=== PATIENT | female | born 1995 | race Caucasian/White ===

== ENCOUNTER 2023-11-25 16:31 | Emergency (ER) | payer OTHER ==
[2023-11-25] MEDS: KETOROLAC 15 MG/ML 1 ML VIAL IVP STA (18:24)
--- NOTE | 2023-11-25 18:24 | ED ---
General Adult HPI - General Chief complaint: Abdominal Pain Stated complaint: left side pain Time Seen by Provider: 11/25/23 16:46 Source: patient, RN notes reviewed Mode of arrival: ambulatory Limitations: no limitations - History of Present Illness Initial comments: 27-year-old female presents to the emergency department for evaluation of left flank pain radiating to her groin. She states that the pain has been constant. Pain has been going on for around 4 days. Patient states that she does have a history of kidney stones and is concerned that this is what is going on. She also has a history of polycystic kidney disease. She does report dysuria, frequency. She denies fever, chills. Admits to nausea without vomiting. - Related Data Home Medications Medication Instructions Recorded Confirmed Albuterol Inhaler [Ventolin Hfa 1 puff INHALATION RT-Q6H PRN 05/05/16 05/05/16 Inhaler] Ciprofloxacin HCl [Cipro] 500 mg PO Q12HR 05/05/16 05/05/16 Medroxyprogesterone Acetate 150 mg IM Q90D 05/05/16 05/05/16 [Depo-Provera] Minocycline HCl [Minocin] 100 mg PO Q12HR 05/05/16 05/05/16 Tretinoin 1 applic TOPICAL HS 05/05/16 05/05/16 Previous Rx's Medication Instructions Recorded Ondansetron Odt [Zofran Odt] 4 mg PO Q8HR PRN #10 tab 05/05/16 Sulfamethox-Tmp 800-160Mg [Bactrim 1 each PO Q12HR #20 tab 05/05/16 Ds] Ondansetron Odt [Zofran Odt] 4 mg PO Q8HR PRN #10 tab 11/25/23 Sulfamethox-Tmp 800-160Mg [Bactrim 1 each PO Q12HR #20 tab 11/25/23 Ds] Allergies Allergy/AdvReac Type Severity Reaction Status Date / Time cephalexin [From Keflex] Allergy Vomiting Verified 11/25/23 16:38 Review of Systems ROS Statement: Those systems with pertinent positive or pertinent negative responses have been documented in the HPI. ROS Other: All systems not noted in ROS Statement are negative. Past Medical History Past Medical History: Asthma, Diabetes Mellitus History of Any Multi-Drug Resistant Organisms: None Reported Past Surgical History: Hernia Repair Past Psychological History: ADD/ADHD Smoking Status: Current every day smoker Past Alcohol Use History: None Reported Past Drug Use History: None Reported General Exam Limitations: no limitations General appearance: alert, in no apparent distress Head exam: Present: atraumatic, normocephalic, normal inspection Eye exam: Present: normal appearance, PERRL, EOMI. Absent: scleral icterus, conjunctival injection, periorbital swelling ENT exam: Present: normal exam, mucous membranes moist Neck exam: Present: normal inspection. Absent: tenderness, meningismus, lymphadenopathy Respiratory exam: Present: normal lung sounds bilaterally. Absent: respiratory distress, wheezes, rales, rhonchi, stridor Cardiovascular Exam: Present: regular rate, normal rhythm, normal heart sounds. Absent: systolic murmur, diastolic murmur, rubs, gallop, clicks GI/Abdominal exam: Present: soft, normal bowel sounds. Absent: distended, tenderness, guarding, rebound, rigid Extremities exam: Present: normal inspection, full ROM, normal capillary refill. Absent: tenderness, pedal edema, joint swelling, calf tenderness Back exam: Absent: CVA tenderness (R), CVA tenderness (L) Neurological exam: Present: alert, oriented X3, CN II-XII intact Psychiatric exam: Present: normal affect, normal mood Skin exam: Present: warm, dry, intact, normal color. Absent: rash Course Vital Signs 11/25/23 11/25/23 11/25/23 16:36 20:11 21:23 Temperature 98.6 F 97.6 F Pulse Rate 91 85 87 Respiratory 20 16 20 Rate Blood Pressure 147/91 136/88 140/82 O2 Sat by Pulse 99 97 98 Oximetry Medical Decision Making - Medical Decision Making Was pt. sent in by a medical professional or institution (, PA, [facility], urgent care, hospital, or [facility]...) When possible be specific @ -No Did you speak to anyone other than the patient for history (EMS, parent, family, police, friend...)? What history was obtained from this source @ -No Did you review nursing and triage notes (agree or disagree)? Why? @ -I reviewed and agree with nursing and triage notes Were old charts reviewed (outside hosp., previous admission, EMS record, old EKG, old radiological studies, urgent care reports/EKG's, [facility] records)? Report findings @ -No old charts were reviewed Differential Diagnosis (chest pain, altered mental status, abdominal pain women, abdominal pain men, vaginal bleeding, weakness, fever, dyspnea, syncope, headache, dizziness, GI bleed, back pain, seizure, CVA, palpatations, mental health, musculoskeletal)? @ -Differential Abdominal Pain Women: Appendicitis, Cholecystitis, diverticulosis, ischemic bowel, pancreatitis, hepa titis, UTI, gastroenteritis, AAA, incarcerated hernia, bowel obstruction, constipation, inflammatory bowel, hepatitis, peptic ulcer disease, splenic infarction, perforated viscus, vulvitis, ovarian torsion, PID, kidney stone, placenta abruption, this is not meant to be an all-inclusive list EKG interpreted by me (3pts min.). @ -None X-rays interpreted by me (1pt min.). @ -None done CT interpreted by me (1pt min.). @ -CT abdomen pelvis was obtained which shows no acute process in the abdomen o r pelvis U/S interpreted by me (1pt. min.). @ -None done What testing was considered but not performed or refused? (CT, X-rays, U/S, labs)? Why? @ -None What meds were considered but not given or refused? Why? @ -None Did you discuss the management of the patient with other professionals (skylar suarez i.e., Dr., PA, [facility], lab, RT, psych nurse, foster care social worker, last putter away, teacher, assault amphibious vehicle officer, counter caser)? Give summary @ -No Was smoking cessation discussed for >3mins.? @ -No Was critical care preformed (if so, how long)? @ -No Were there social determinants of health that impacted care today? How? (Homelessness, low income, unemployed, alcoholism, drug addiction, transportation, low edu. Level, literacy, decrease access to med. care, snf, rehab)? @ -No Was there de-escalation of care discussed even if they declined (Discuss DNR or withdrawal of care, Hospice)? DNR status @ -No What co-morbidities impacted this encounter? (DM, HTN, Smoking, COPD, CAD, Cancer, CVA, ARF, Chemo, Hep., AIDS, mental health diagnosis, sleep apnea, morbid obesity)? @ -None Was patient admitted / discharged? Hospital course, mention meds given and route, prescriptions, significant lab abnormalities, going to OR and other pertinent info. @ -Discharge. Patient presented to the emergency department for evaluation of left flank pain. Laboratory studies obtained. WBC 10, hemoglobin 14.6; CMP shows normal BUN, creatinine. UA shows turbid urine, trace blood, positive nitrate, large leukocyte esterase. This will be sent for culture. CT abdomen pelvis was obtained which shows multiple cystic lesions on the kidneys. Patient has a history of polycystic kidney disease. There is no acute process of the abdomen pelvis. Patient will be started on Bactrim for treatment of urinary tract infection. Patient understanding agreeable plan. Patient stable at time of discharge. Case discussed with Dr. Banks Undiagnosed new problem with uncertain prognosis? @ -No Drug Therapy requiring intensive monitoring for toxicity (Heparin, Nitro, Insulin, Cardizem)? @ -No Were any procedures done? @ -No Diagnosis/symptom? @ -UTI Acute, or Chronic, or Acute on Chronic? @ -Acute Uncomplicated (without systemic symptoms) or Complicated (systemic symptoms)? @ -Uncomplicated Side effects of treatment? @ -No Exacerbation, Progression, or Severe Exacerbation? @ -No Poses a threat to life or bodily function? How? (Chest pain, [place], [place], pneumonia, PE, COPD, DKA, ARF, appy, cholecystitis, CVA, Diverticulitis, Homicidal, Suicidal, threat to staff... and all critical care pts) @ -No - Lab Data Result diagrams: 11/25/23 18:26 11/25/23 18:26 Lab Results 11/25/23 11/25/23 11/25/23 Range/Units 18:26 18:26 18:26 WBC 10.0 (3.8-10.6) k/uL RBC 5.05 (3.80-5.40) m/uL Hgb 14.6 (11.4-16.0) gm/dL Hct 43.4 (34.0-46.0) % MCV 85.9 (80.0-100.0) fL MCH 28.8 (25.0-35.0) pg MCHC 33.5 (31.0-37.0) g/dL RDW 13.0 (11.5-15.5) % Plt Count 287 (150-450) k/uL MPV 6.9 Neutrophils % 67 % Lymphocytes % 23 % Monocytes % 6 % Eosinophils % 2 % Basophils % 1 % Neutrophils # 6.7 (1.3-7.7) k/uL Lymphocytes # 2.3 (1.0-4.8) k/uL Monocytes # 0.6 (0-1.0) k/uL Eosinophils # 0.2 (0-0.7) k/uL Basophils # 0.1 (0-0.2) k/uL Sodium (137-145) mmol/L Potassium (3.5-5.1) mmol/L Chloride (98-107) mmol/L Carbon Dioxide (22-30) mmol/L Anion Gap mmol/L BUN (7-17) mg/dL Creatinine (0.52-1.04) mg/dL Est GFR (CKD-EPI)AfAm (>60 ml/min/1.73 sqM) Est GFR (CKD-EPI)NonAf (>60 ml/min/1.73 sqM) Glucose (74-99) mg/dL Calcium (8.4-10.2) mg/dL Total Bilirubin (0.2-1.3) mg/dL AST (14-36) U/L ALT (4-34) U/L Alkaline Phosphatase (38-126) U/L Total Protein (6.3-8.2) g/dL Albumin (3.5-5.0) g/dL Amylase (30-110) U/L Lipase (23-300) U/L Urine Color Light Yellow Urine Appearance Turbid H (Clear) Urine pH 7.5 (5.0-8.0) Ur Specific [place] 1.022 (1.001-1.035) Urine Protein 1+ H (Negative) Urine Glucose (UA) Negative (Negative) Urine Ketones Negative (Negative) Urine Blood Trace H (Negative) Urine Nitrite Positive H (Negative) Urine Bilirubin Negative (Negative) Urine Urobilinogen <2.0 (<2.0) mg/dL Ur Leukocyte Esterase Large H (Negative) Urine RBC 7 H (0-5) /hpf Urine WBC 155 H (0-5) /hpf Ur Squamous Epith Cells 3 (0-4) /hpf Amorphous Sediment Rare H (None) /hpf Urine Bacteria Occasional H (None) /hpf Urine Mucus Rare H (None) /hpf Urine HCG, Qual Not Detected (Not Detectd) 11/25/23 Range/Units 18:26 WBC (3.8-10.6) k/uL RBC (3.80-5.40) m/uL Hgb (11.4-16.0) gm/dL Hct (34.0-46.0) % MCV (80.0-100.0) fL MCH (25.0-35.0) pg MCHC (31.0-37.0) g/dL RDW (11.5-15.5) % Plt Count (150-450) k/uL MPV Neutrophils % % Lymphocytes % % Monocytes % % Eosinophils % % Basophils % % Neutrophils # (1.3-7.7) k/uL Lymphocytes # (1.0-4.8) k/uL Monocytes # (0-1.0) k/uL Eosinophils # (0-0.7) k/uL Basophils # (0-0.2) k/uL Sodium 143 (137-145) mmol/L Potassium 4.1 (3.5-5.1) mmol/L Chloride 108 H (98-107) mmol/L Carbon Dioxide 27 (22-30) mmol/L Anion Gap 8 mmol/L BUN 13 (7-17) mg/dL Creatinine 0.80 (0.52-1.04) mg/dL Est GFR (CKD-EPI)AfAm >90 (>60 ml/min/1.73 sqM) Est GFR (CKD-EPI)NonAf >90 (>60 ml/min/1.73 sqM) Glucose 97 (74-99) mg/dL Calcium 8.9 (8.4-10.2) mg/dL Total Bilirubin 0.3 (0.2-1.3) mg/dL AST 38 H (14-36) U/L ALT 48 H (4-34) U/L Alkaline Phosphatase 99 (38-126) U/L Total Protein 6.9 (6.3-8.2) g/dL Albumin 4.2 (3.5-5.0) g/dL Amylase 67 (30-110) U/L Lipase 206 (23-300) U/L Urine Color Urine Appearance (Clear) Urine pH (5.0-8.0) Ur Specific [place] (1.001-1.035) Urine Protein (Negative) Urine Glucose (UA) (Negative) Urine Ketones (Negative) Urine Blood (Negative) Urine Nitrite (Negative) Urine Bilirubin (Negative) Urine Urobilinogen (<2.0) mg/dL Ur Leukocyte Esterase (Negative) Urine RBC (0-5) /hpf Urine WBC (0-5) /hpf Ur Squamous Epith Cells (0-4) /hpf Amorphous Sediment (None) /hpf Urine Bacteria (None) /hpf Urine Mucus (None) /hpf Urine HCG, Qual (Not Detectd) Disposition Clinical Impression: UTI (urinary tract infection) Disposition: HOME SELF-CARE Condition: Stable Instructions (If sedation given, give patient instructions): Urinary Tract Infection in Women (ED) Additional Instructions: Please peanut picker antibiotics and take to completion. Follow-up with your primary care provider. Return to the emergency department for new or worsening symptoms. Prescriptions: Sulfamethox-Tmp 800-160Mg [Bactrim Ds] 1 each PO Q12HR #20 tab Ondansetron Odt [Zofran Odt] 4 mg PO Q8HR PRN #10 tab PRN Reason: Nausea Is patient prescribed a controlled substance at d/c from ED?: No Referrals: None,Stated [Primary Care Provider] - 1-2 days
[2023-11-25 18:50] LABS: Basophils # (A) 0.1 k/uL (0-0.2); Basophils % (A) 1 %; Eosinophils # (A) 0.2 k/uL (0-0.7); Eosinophils % (A) 2 %; HCT 43.4 % (34.0-46.0); HGB 14.6 gm/dL (11.4-16.0); Lymphocytes # (A) 2.3 k/uL (1.0-4.8); Lymphocytes % (A) 23 %; MCH 28.8 pg (25.0-35.0); MCHC 33.5 g/dL (31.0-37.0); MCV 85.9 fL (80.0-100.0); Mean Platelet Volume 6.9; Monocytes # (A) 0.6 k/uL (0-1.0); Monocytes % (A) 6 %; Neutrophils # (A) 6.7 k/uL (1.3-7.7); Neutrophils % (A) 67 %; Platelet Count 287 k/uL (150-450); RBC 5.05 m/uL (3.80-5.40)
[2023-11-25 18:54] LABS: ALT 48 U/L (4-34); AST 38 U/L (14-36); African American GFR (CKD) >90 (>60 ml/min/1.73 sqM); Albumin 4.2 g/dL (3.5-5.0); Alkaline Phosphatase 99 U/L (38-126); Amylase 67 U/L (30-110); Anion Gap 8 mmol/L; Blood Urea Nitrogen 13 mg/dL (7-17); Calcium 8.9 mg/dL (8.4-10.2); Carbon Dioxide 27 mmol/L (22-30); Chloride 108 mmol/L (98-107); Glucose 97 mg/dL (74-99); Lipase 206 U/L (23-300); Non-African American GFR(CKD) >90 (>60 ml/min/1.73 sqM); Potassium 4.1 mmol/L (3.5-5.1); Sodium 143 mmol/L (137-145); Total Bilirubin 0.3 mg/dL (0.2-1.3); Total Protein 6.9 g/dL (6.3-8.2)
[2023-11-25 18:55] LABS: Amorphous Sediment,Urine Rare /hpf; Appearance,Urine Turbid (Clear); Bacteria,Urine Occasional /hpf; Bilirubin,Urine Negative (Negative); Blood,Urine Trace (Negative); Color,Urine Light Yellow; Glucose,Urine (UA) Negative (Negative); Ketones,Urine Negative (Negative); Leukocyte Esterase,Urine Large (Negative); Mucus,Urine Rare /hpf; Nitrite,Urine Positive (Negative); PH, Urine 7.5 (5.0-8.0); Protein,Urine 1+ (Negative); RBC,Urine 7 /hpf (0-5); Specific Gravity,Urine 1.022 (1.001-1.035); Squamous Epithelial Cell,Urine 3 /hpf (0-4); Urobilinogen,Urine <2.0 mg/dL (<2.0); WBC,Urine 155 /hpf (0-5)
[2023-11-25] MEDS: ONDANSETRON 4 MG/2 ML VIAL IVP STA (19:55)
[2023-11-25] MEDS: MORPHINE SULFATE 4 MG/ML SYRINGE IVP STA (19:56)
--- NOTE | 2023-11-25 20:07 | CT ---
EXAMINATION TYPE: CT abdomen pelvis w con CT DLP: 2513 mGycm, Automated exposure control for dose reduction was used. DATE OF EXAM: 11/25/2023 7:33 PM COMPARISON: None. CLINICAL INDICATION:Female, 27 years old with history of flank pain; left flank pain x4 days TECHNIQUE: Axial CT of the abdomen and pelvis. Sagittal and coronal reformats were created on a [employer] workstation. Contrast used:100 mL of Isovue 300 with IV Contrast, (none if empty) Oral contrast used: without Oral Contrast (none if empty) FINDINGS: LOWER CHEST: Heart size upper normal. Lung bases are clear. ABDOMEN LIVER: Unremarkable GALLBLADDER AND BILE DUCTS: Contracted gallbladder. Biliary tree appears within normal limits. PANCREAS: Unremarkable. SPLEEN: Unremarkable. ADRENAL GLANDS: Unremarkable. KIDNEYS AND URETERS: Kidneys enhance symmetrically. Small hypodense lesions bilaterally with the appe arance of cysts, there is a 7 mm calcification at the posterior aspect of the one in the superior miky e left kidney. No visible urinary calculi otherwise. No hydronephrosis. PELVIS BLADDER: Unremarkable REPRODUCTIVE: Uterus and adnexal regions appear grossly unremarkable, though not well assessed by CT. Central uterine low-attenuation and suspected follicular changes of the ovaries, considered normal for a reproductive age patient. ABDOMEN & PELVIS STOMACH AND BOWEL: Stomach and small bowel are nondistended, no evidence of obstruction. The append ix appears within normal limits. There is some stool and gas seen throughout the colon with no focal acute abnormality shown. PERITONEUM/RETROPERITONEUM: No evidence of pneumoperitoneum or free fluid. VASCULATURE: Aorta and major branches are grossly unremarkable. No AAA. Portal veins are enhancing. Splenic vein is patent. LYMPH NODES: No evidence for lymphadenopathy. SOFT TISSUE/ABDOMINAL WALL: Unremarkable MUSCULOSKELETAL: No acute osseous abnormalities. IMPRESSION: No acute abnormality in the abdomen or pelvis.
[2023-11-25] MEDS: cefTRIAXone IN SWFI 1,000 MG/10 ML SYRINGE IVP STA (20:57)
[2023-11-25 21:49] VITALS: BP 140/82; PULSE 87; RESP 20; TEMP 97.6
== END 2023-11-25 21:05 | disposition home or self-care (01) ==
LOC: EC 16:31
DX: N39.0 Urinary tract infection, site not specified (principal); B96.20 Unspecified Escherichia coli [E. coli] as the cause of diseases classified elsewhere; F17.200 Nicotine dependence, unspecified, uncomplicated; Z88.1 Allergy status to other antibiotic agents
CPT/HCPCS: 36415; 80053; 82150; 83690; 85025; 81001; 81025; 87086; 87077; 87186; 74177; 99284; 96374; 96375 ×3; J2270; J2405; J0696; J1885; Q9967

== ENCOUNTER 2024-02-12 18:46 | Emergency (ER) | payer MEDICARE, OTHER ==
--- NOTE | 2024-02-12 19:02 | ED ---
Skin/Abscess/FB HPI - General Source: patient, RN notes reviewed Mode of arrival: ambulatory Limitations: no limitations <Sima Spain - Last Filed: 02/12/24 19:01> <Eda Aldana - Last Filed: 02/13/24 23:46> - General Stated complaint: Abscess on bottom Time Seen by Provider: 02/12/24 19:01 - History of Present Illness Initial comments: Quick note: 28-year-old female presented to the ER with a chief complaint of an abscess. Patient reports she first noticed an abscess on her buttocks on . She states on Sunday she noticed it was draining and foul-smelling. She states it stopped draining and came back even larger. She reports at work today she noticed her pants were wet and states she did not urinate herself concerning it was draining again. Patient also reports possible . (Sima Spain) 28-year-old female presenting with chief complaint of abscess. Patient has had an abscess to the buttocks for a few days. She states that at work today she noticed that her pants were wet and when she went to go check herself she noticed that the abscess was draining. The drainage smells quite foul. She is having no fevers. Patient does have history of pilonidal cyst that needed bright rgical intervention. The abscess is in close proximity to her anus. No nausea or vomiting. No abdominal pain. Patient also reports possible . (Eda Aldana) - Related Data Home Medications Medication Instructions Recorded Confirmed Albuterol Inhaler [Ventolin Hfa 1 puff INHALATION RT-Q6H PRN 05/05/16 05/05/16 Inhaler] Ciprofloxacin HCl [Cipro] 500 mg PO Q12HR 05/05/16 05/05/16 Medroxyprogesterone Acetate 150 mg IM Q90D 05/05/16 05/05/16 [Depo-Provera] Minocycline HCl [Minocin] 100 mg PO Q12HR 05/05/16 05/05/16 Tretinoin 1 applic TOPICAL HS 05/05/16 05/05/16 Previous Rx's Medication Instructions Recorded Ondansetron Odt [Zofran Odt] 4 mg PO Q8HR PRN #10 tab 05/05/16 Sulfamethox-Tmp 800-160Mg [Bactrim 1 each PO Q12HR #20 tab 05/05/16 Ds] Ondansetron Odt [Zofran Odt] 4 mg PO Q8HR PRN #10 tab 11/25/23 Sulfamethox-Tmp 800-160Mg [Bactrim 1 each PO Q12HR #20 tab 11/25/23 Ds] Cephalexin [Keflex] 500 mg PO Q6HR 7 Days #28 cap 02/13/24 Doxycycline [Vibramycin] 100 mg PO BID 7 Days #14 capsule 02/13/24 Sulfamethox-Tmp 800-160Mg [Bactrim 1 tab PO Q12HR 7 Days #14 tab 02/13/24 DS 800-160 mg] Allergies Allergy/AdvReac Type Severity Reaction Status Date / Time cephalexin [From Keflex] Allergy Vomiting Verified 02/12/24 18:58 Review of Systems ROS Other: All systems not noted in ROS Statement are negative. <Sima Spain - Last Filed: 02/12/24 19:01> ROS Other: All systems not noted in ROS Statement are negative. <Eda Aldana - Last Filed: 02/13/24 23:46> ROS Statement: Those systems with pertinent positive or pertinent negative responses have been documented in the HPI. Past Medical History Past Medical History: Asthma, Diabetes Mellitus History of Any Multi-Drug Resistant Organisms: None Reported Past Surgical History: Hernia Repair Past Psychological History: ADD/ADHD Smoking Status: Current every day smoker Past Alcohol Use History: None Reported Past Drug Use History: None Reported <Sima Spain - Last Filed: 02/12/24 19:01> General Exam Limitations: no limitations <Sima Spain - Last Filed: 02/12/24 19:01> General appearance: alert, in no apparent distress Head exam: Present: atraumatic, normocephalic Eye exam: Present: normal appearance, EOMI Neck exam: Present: normal inspection. Absent: meningismus Respiratory exam: Absent: respiratory distress Rectal exam: Present: mass (Abscess) Neurological exam: Present: alert, oriented X3 Psychiatric exam: Present: normal affect, normal mood Skin exam: Present: normal color <Eda Aldana - Last Filed: 02/13/24 23:46> - General Exam Comments Initial Comments: Visual Physical Exam Vital signs reviewed General: Well-appearing, nontoxic, no acute distress. Head: Normocephalic, atraumatic Eyes: PERRLA, EOMI ENT: Airway patent Chest: Nonlabored breathing Skin: No visual rash, normal skin tone Neuro: Alert and oriented 3 Musculoskeletal: No gross abnormalities (Sima Spain) Course Vital Signs 02/12/24 02/12/24 02/13/24 18:55 23:30 01:52 Temperature 99.0 F 98.6 F Pulse Rate 112 H 101 H 97 Respiratory 18 16 16 Rate Blood Pressure 138/88 128/84 131/80 O2 Sat by Pulse 99 99 99 Oximetry Medical Decision Making <Sima Spain - Last Filed: 02/12/24 19:01> - Lab Data Result diagrams: 02/12/24 22:57 02/12/24 22:57 <Eda Aldana - Last Filed: 02/13/24 23:46> - Medical Decision Making I performed the quick note portion of this chart. Electronically signed by Sima Spain PA-C (Sima Spain) Was pt. sent in by a medical professional or institution ([facility], [employer]CTOR, urgent care, hospital, or intermediate...) When possible be specific @ -No Did you speak to anyone other than the patient for history (EMS, parent, family, police, friend...)? What history was obtained from this source @ -No Did you review nursing and triage notes (agree or disagree)? Why? @ -I reviewed and agree with nursing and triage notes Were old charts reviewed (outside hosp., previous admission, EMS record, old EKG, old radiological studies, urgent care reports/EKG's, intermediate records)? Report findings @ -No old charts were reviewed Differential Diagnosis (chest pain, altered mental status, abdominal pain women, abdominal pain men, vaginal bleeding, weakness, fever, dyspnea, syncope, he adache, dizziness, GI bleed, back pain, seizure, CVA, palpatations, mental health, musculoskeletal)? @ -Differential includes perirectal abscess, cellulitis, fistula, this is not an all-inclusive list EKG interpreted by me (3pts min.). @ -As above X-rays interpreted by me (1pt min.). @ -None done CT interpreted by me (1pt min.). @ -CT shows thickening and inflammation along the right perianal region/buttocks. No fluid collection. Correlate with infection. Fatty liver. U/S interpreted by me (1pt. min.). @ -None done What testing was considered but not performed or refused? (CT, X-rays, U/S, labs)? Why? @ -None What meds were considered but not given or refused? Why? @ -None Did you discuss the management of the patient with other professionals (professionals i.e. , PA, RUSSIAN LANGUAGE INSTRUCTOR, lab, RT, psych nurse, social media specialist, real estate rep, teacher, chief contract officer, case supervisor)? Give summary @ -No Was smoking cessation discussed for >3mins.? @ -No Was critical care preformed (if so, how long)? @ -No Were there social determinants of health that impacted care today? How? (Homelessness, low income, unemployed, alcoholism, drug addiction, transportation, low edu. Level, literacy, decrease access to med. care, detention, rehab)? @ -No Was there de-escalation of care discussed even if they declined (Discuss DNR or withdrawal of care, Hospice)? DNR status @ -No What co-morbidities impacted this encounter? (DM, HTN, Smoking, COPD, CAD, Cancer, CVA, ARF, Chemo, Hep., AIDS, mental health diagnosis, sleep apnea, morbid obesity)? @ -None Was patient admitted / discharged? Hospital course, mention meds given and route, prescriptions, significant lab abnormalities, going to OR and other pertinent info. @ -28-year-old female presenting with chief complaint of abscess. Located in close proximity to the anus. Workup initiated by triage. WBC 12.6. Patient is later placed in a room and examined by myself. The abscess is actively draining. CT shows thickening and inflammation along the right perianal region/buttocks with no fluid collection. Considering that no further fluid collection remains, patient can reasonably be discharged on oral antibiotics with general surgery follow-up. Patient is agreeable with this plan. Discharged home. Follow-up with PCP. Report back to ER with any new or worsening symptoms. Discussed return parameters and answered all questions. Patient conveyed verbal understanding and agreed to the plan. I discussed this case in detail with my attending Dr. Trachy Undiagnosed new problem with uncertain prognosis? @ -No Drug Therapy requiring intensive monitoring for toxicity (Heparin, Nitro, Insulin, Cardizem)? @ -No Were any procedures done? @ -No Diagnosis/symptom? @ -Cellulitis and abscess of buttock Acute, or Chronic, or Acute on Chronic? @ -Acute Uncomplicated (without systemic symptoms) or Complicated (systemic symptoms)? @ -Uncomplicated Side effects of treatment? @ -No Exacerbation, Progression, or Severe Exacerbation? @ -No Poses a threat to life or bodily function? How? (Chest pain, [place], [place], pneumonia, PE, COPD, DKA, ARF, appy, cholecystitis, CVA, Diverticulitis, Homicidal, Suicidal, threat to staff... and all critical care pts) @ -Low likelihood at this time (Eda Aldana) - Lab Data Lab Results 02/12/24 02/12/24 02/12/24 Range/Units 19:56 19:56 22:57 WBC 12.6 H (3.8-10.6) k/uL RBC 5.14 (3.80-5.40) m/uL Hgb 14.4 (11.4-16.0) gm/dL Hct 43.7 (34.0-46.0) % MCV 85.0 (80.0-100.0) fL MCH 28.1 (25.0-35.0) pg MCHC 33.0 (31.0-37.0) g/dL RDW 12.5 (11.5-15.5) % Plt Count 280 (150-450) k/uL MPV 6.9 Neutrophils % 72 % Lymphocytes % 20 % Monocytes % 5 % Eosinophils % 1 % Basophils % 1 % Neutrophils # 9.0 H (1.3-7.7) k/uL Lymphocytes # 2.6 (1.0-4.8) k/uL Monocytes # 0.6 (0-1.0) k/uL Eosinophils # 0.2 (0-0.7) k/uL Basophils # 0.1 (0-0.2) k/uL Sodium (137-145) mmol/L Potassium (3.5-5.1) mmol/L Chloride (98-107) mmol/L Carbon Dioxide (22-30) mmol/L Anion Gap mmol/L BUN (7-17) mg/dL Creatinine (0.52-1.04) mg/dL Est GFR (CKD-EPI)AfAm (>60 ml/min/1.73 sqM) Est GFR (CKD-EPI)NonAf (>60 ml/min/1.73 sqM) Glucose (74-99) mg/dL Calcium (8.4-10.2) mg/dL Total Bilirubin (0.2-1.3) mg/dL AST (14-36) U/L ALT (4-34) U/L Alkaline Phosphatase (38-126) U/L Total Protein (6.3-8.2) g/dL Albumin (3.5-5.0) g/dL Urine Color Light Yellow Urine Appearance Cloudy H (Clear) Urine pH 5.5 (5.0-8.0) Ur Specific [place] 1.025 (1.001-1.035) Urine Protein Trace H (Negative) Urine Glucose (UA) Negative (Negative) Urine Ketones Negative (Negative) Urine Blood Small H (Negative) Urine Nitrite Positive H (Negative) Urine Bilirubin Negative (Negative) Urine Urobilinogen <2.0 (<2.0) mg/dL Ur Leukocyte Esterase Large H (Negative) Urine RBC 2 (0-5) /hpf Urine WBC 51 H (0-5) /hpf Ur Squamous Epith Cells 5 H (0-4) /hpf Calcium Oxalate Crystal Occasional H (None) /hpf Urine Bacteria Moderate H (None) /hpf Hyaline Casts 1 (0-2) /lpf Urine Mucus Rare H (None) /hpf Urine HCG, Qual Not Detected (Not Detectd) 02/12/24 Range/Units 22:57 WBC (3.8-10.6) k/uL RBC (3.80-5.40) m/uL Hgb (11.4-16.0) gm/dL Hct (34.0-46.0) % MCV (80.0-100.0) fL MCH (25.0-35.0) pg MCHC (31.0-37.0) g/dL RDW (11.5-15.5) % Plt Count (150-450) k/uL MPV Neutrophils % % Lymphocytes % % Monocytes % % Eosinophils % % Basophils % % Neutrophils # (1.3-7.7) k/uL Lymphocytes # (1.0-4.8) k/uL Monocytes # (0-1.0) k/uL Eosinophils # (0-0.7) k/uL Basophils # (0-0.2) k/uL Sodium 141 (137-145) mmol/L Potassium 3.8 (3.5-5.1) mmol/L Chloride 108 H (98-107) mmol/L Carbon Dioxide 23 (22-30) mmol/L Anion Gap 10 mmol/L BUN 13 (7-17) mg/dL Creatinine 0.79 (0.52-1.04) mg/dL Est GFR (CKD-EPI)AfAm >90 (>60 ml/min/1.73 sqM) Est GFR (CKD-EPI)NonAf >90 (>60 ml/min/1.73 sqM) Glucose 89 (74-99) mg/dL Calcium 9.0 (8.4-10.2) mg/dL Total Bilirubin 0.5 (0.2-1.3) mg/dL AST 33 (14-36) U/L ALT 38 H (4-34) U/L Alkaline Phosphatase 107 (38-126) U/L Total Protein 7.3 (6.3-8.2) g/dL Albumin 4.4 (3.5-5.0) g/dL Urine Color Urine Appearance (Clear) Urine pH (5.0-8.0) Ur Specific [place] (1.001-1.035) Urine Protein (Negative) Urine Glucose (UA) (Negative) Urine Ketones (Negative) Urine Blood (Negative) Urine Nitrite (Negative) Urine Bilirubin (Negative) Urine Urobilinogen (<2.0) mg/dL Ur Leukocyte Esterase (Negative) Urine RBC (0-5) /hpf Urine WBC (0-5) /hpf Ur Squamous Epith Cells (0-4) /hpf Calcium Oxalate Crystal (None) /hpf Urine Bacteria (None) /hpf Hyaline Casts (0-2) /lpf Urine Mucus (None) /hpf Urine HCG, Qual (Not Detectd) Disposition <Sima Spain - Last Filed: 02/12/24 19:01> Is patient prescribed a controlled substance at d/c from ED?: No Time of Disposition: 01:33 <Eda Aldana - Last Filed: 05/29/24 23:46> Clinical Impression: Cellulitis and abscess of buttock Disposition: HOME SELF-CARE Condition: Good Instructions (If sedation given, give patient instructions): Cellulitis (ED) Additional Instructions: Follow-up with PCP and general surgeon. Report back to ER with any new or worsening symptoms. Take medication as prescribed. Prescriptions: Sulfamethox-Tmp 800-160Mg [Bactrim DS 800-160 mg] 1 tab PO Q12HR 7 Days #14 tab Cephalexin [Keflex] 500 mg PO Q6HR 7 Days #28 cap Doxycycline [Vibramycin] 100 mg PO BID 7 Days #14 capsule Referrals: None,Stated [Primary Care Provider] - 1-2 days Krishna Mullen MD [STAFF PHYSICIAN] - 1-2 days Annamarie Ward MD [STAFF PHYSICIAN] - 1-2 days
[2024-02-12 20:26] LABS: Appearance,Urine Cloudy (Clear); Bacteria,Urine Moderate /hpf; Bilirubin,Urine Negative (Negative); Blood,Urine Small (Negative); Calcium Oxalate Crystals,Urine Occasional /hpf; Color,Urine Light Yellow; Glucose,Urine (UA) Negative (Negative); Hyaline Casts,Urine 1 /lpf (0-2); Ketones,Urine Negative (Negative); Leukocyte Esterase,Urine Large (Negative); Mucus,Urine Rare /hpf; Nitrite,Urine Positive (Negative); PH, Urine 5.5 (5.0-8.0); Protein,Urine Trace (Negative); RBC,Urine 2 /hpf (0-5); Specific Gravity,Urine 1.025 (1.001-1.035); Squamous Epithelial Cell,Urine 5 /hpf (0-4); Urobilinogen,Urine <2.0 mg/dL (<2.0); WBC,Urine 51 /hpf (0-5)
[2024-02-12] MEDS: MORPHINE SULFATE 4 MG/ML SYRINGE IVP STA (23:00)
[2024-02-12 23:04] LABS: Basophils # (A) 0.1 k/uL (0-0.2); Basophils % (A) 1 %; Eosinophils # (A) 0.2 k/uL (0-0.7); Eosinophils % (A) 1 %; HCT 43.7 % (34.0-46.0); HGB 14.4 gm/dL (11.4-16.0); Lymphocytes # (A) 2.6 k/uL (1.0-4.8); Lymphocytes % (A) 20 %; MCH 28.1 pg (25.0-35.0); Mean Platelet Volume 6.9; Monocytes # (A) 0.6 k/uL (0-1.0); Monocytes % (A) 5 %; Neutrophils % (A) 72 %; Platelet Count 280 k/uL (150-450); RBC 5.14 m/uL (3.80-5.40); RDW 12.5 % (11.5-15.5); WBC 12.6 k/uL (3.8-10.6)
[2024-02-12 23:26] LABS: ALT 38 U/L (4-34); AST 33 U/L (14-36); African American GFR (CKD) >90 (>60 ml/min/1.73 sqM); Albumin 4.4 g/dL (3.5-5.0); Alkaline Phosphatase 107 U/L (38-126); Anion Gap 10 mmol/L; Blood Urea Nitrogen 13 mg/dL (7-17); Carbon Dioxide 23 mmol/L (22-30); Chloride 108 mmol/L (98-107); Glucose 89 mg/dL (74-99); Non-African American GFR(CKD) >90 (>60 ml/min/1.73 sqM); Potassium 3.8 mmol/L (3.5-5.1); Sodium 141 mmol/L (137-145); Total Bilirubin 0.5 mg/dL (0.2-1.3); Total Protein 7.3 g/dL (6.3-8.2)
--- NOTE | 2024-02-13 01:09 | CT ---
EXAM: CT Abdomen and Pelvis With Intravenous Contrast CLINICAL HISTORY: ITS.REASON CT Reason: abscess, r/o perirectal involvement TECHNIQUE: Axial computed tomography images of the abdomen and pelvis with intravenous contrast. CTDI is 52.1 mGy and DLP is 2363.2 mGy-cm. This CT exam was performed using one or more of the following dose reduction techniques: automated exposure control, adjustment of the mA and/or kV according to patient size, and/or use of iterative reconstruction technique. COMPARISON: No relevant prior studies available. FINDINGS: ABDOMEN: Liver: Enlarged mildly fatty liver. Gallbladder and bile ducts: Unremarkable. Pancreas: Unremarkable. Spleen: Unremarkable. Adrenals: Unremarkable. Kidneys and ureters: No hydronephrosis. Bilateral renal cyst. Nonobstructive stone left kidney. Stomach and bowel: No bowel obstruction. No bowel wall thickening. PELVIS: Appendix: No evidence of appendicitis. Bladder: Unremarkable. Reproductive: Unremarkable. ABDOMEN and PELVIS: Intraperitoneal space: Unremarkable. Bones/joints: No acute fractures. Soft tissues: Thickening and inflammation along the right perianal region/buttocks. No fluid collection. Vasculature: No abdominal aortic aneurysm. Lymph nodes: No enlarged lymph nodes. IMPRESSION: Thickening and inflammation along the right perianal region/buttocks. No fluid collection. Correlate with infection. Fatty liver.
[2024-02-13] MEDS: ACET/COD 300 MG/30 MG STARTER PACK 6 TAB BTL PO STA (01:49)
[2024-02-13] MEDS: CEPHALEXIN 500 MG CAP PO STA (01:50)
[2024-02-13] MEDS: SULFAMETHOX-TMP 800-160MG 1 EACH TAB PO STA (01:50)
[2024-02-13 03:20] VITALS: BP 131/80; PULSE 97; RESP 16; TEMP 98.6
== END 2024-02-13 01:52 | disposition home or self-care (01) ==
LOC: EC 18:46
DX: L02.31 Cutaneous abscess of buttock (principal); L03.317 Cellulitis of buttock; F17.200 Nicotine dependence, unspecified, uncomplicated; Z88.1 Allergy status to other antibiotic agents
CPT/HCPCS: 36415; 80053; 85025; 81001; 81025; 74177; 99284; 96374; J2270; Q9967

== ENCOUNTER 2024-03-04 06:00 | Day surgery (SDC) | payer MEDICARE ==
[~2024-03-04 06:00] MED LIST: metroNIDAZOLE-NS PMX 500 MG in SALINE 1 100ML.BAG IVPB PRN
[2024-03-04 07:04] LABS: Glucose,Whole Blood 95 mg/dL (70-110)
[2024-03-04 07:10] VITALS: RESP 20; TEMP 98.2
[2024-03-04] MEDS: DEXAMETHASONE SOD PHOSPHATE 4 MG/ML 1 ML VIAL IV ONE (07:17)
[2024-03-04] MEDS: LACTATED RINGERS 1,000 ML IV SCH (07:17)
[2024-03-04] MEDS: ONDANSETRON 4 MG/2 ML VIAL IVP ONE (07:17)
[2024-03-04] MEDS: LIDOCAINE 1%-EPI 1:100,000 20 ML VIAL SQ ONE ×3 (07:17→07:57)
[2024-03-04] MEDS: SCOPOLAMINE 1 MG/72 HR PATCH TRANSDERM ONE (07:24)
[2024-03-04] MEDS: IV FLUID CONTINUATION 1,000 ML IV ONE ×2 (07:29→08:39)
[2024-03-04] MEDS ORDERED: LIDOCAINE 1% INJ 10MG/ML (20 ML MDV) ONE (07:33)
[2024-03-04] MEDS ORDERED: fentaNYL (PF) 50 MCG/ML 2 ML AMP ONE (07:33)
[2024-03-04] MEDS ORDERED: HYDROmorphone (PF) 1 MG/ML ONE (07:33)
[2024-03-04] MEDS ORDERED: MIDAZOLAM 2 MG/2 ML VIAL ONE (07:33)
[2024-03-04] MEDS ORDERED: KETOROLAC 15 MG/ML 1 ML VIAL ONE (07:33)
[2024-03-04] MEDS ORDERED: PROPOFOL 10 MG/ML 20 ML VIAL IV ONE (07:33)
--- NOTE | 2024-03-04 08:30 | P.OP ---
Date of Procedure: 03/04/24 Preoperative Diagnosis: pilonidal cyst Postoperative Diagnosis: pilonidal cyst Procedure(s) Performed: excision of pilonidal cyst Anesthesia: PALAK Surgeon: Krishna Mullen Estimated Blood Loss (ml): 5 Pathology: other (pilonidal cyst) Condition: stable Disposition: PACU Description of Procedure: the patient's placed on the operative table in the prone jackknife position. She received general anesthesia. The area of pilonidal cyst was prepped and draped usual sterile fashion. Elliptical skin incision was made with a 15 blade. And then using electrocautery the prognosis site was excised. The dissection was taken down level of the coccyx. Hemostasis achieved with cauter y. The wound was then packed with wet-to-dry Kerlix. Patient top she will. She was sent to recovery in stable condition.
[2024-03-04] MEDS: HYDROmorphone 0.5 MG/0.5 ML SYRINGE IVP PRN (08:37)
[2024-03-04 09:34] VITALS: BP 115/70; PULSE 75
== END 2024-03-04 10:15 | disposition home or self-care (01) ==
LOC: OR 06:00
PROVIDERS: ATTEND Surgery
DX: L05.91 Pilonidal cyst without abscess (principal); J45.909 Unspecified asthma, uncomplicated; E11.9 Type 2 diabetes mellitus without complications; E66.01 Morbid (severe) obesity due to excess calories; Z68.42 Body mass index [BMI] 45.0-49.9, adult; F17.290 Nicotine dependence, other tobacco product, uncomplicated; Z88.1 Allergy status to other antibiotic agents; Z79.84 Long term (current) use of oral hypoglycemic drugs; Z79.899 Other long term (current) drug therapy
CPT/HCPCS: 81025; 88304

== ENCOUNTER 2024-03-09 12:53 | Emergency (ER) | payer MEDICARE, OTHER ==
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
[2024-03-09 13:20] VITALS: RESP 16
[2024-03-09] MEDS: ACETAMINOPHEN TAB 500 MG TAB PO STA (14:15)
[2024-03-09] MEDS: SODIUM CHLORIDE 0.9% 1,000 ML IV STA (14:17)
[2024-03-09] MEDS: KETOROLAC 15 MG/ML 1 ML VIAL IVP STA (14:17)
[2024-03-09 14:19] LABS: ALT 34 U/L (4-34); African American GFR (CKD) >90 (>60 ml/min/1.73 sqM); Anion Gap 7 mmol/L; Blood Urea Nitrogen 8 mg/dL (7-17); Calcium 9.1 mg/dL (8.4-10.2); Carbon Dioxide 26 mmol/L (22-30); Chloride 103 mmol/L (98-107); Glucose 87 mg/dL (74-99); Non-African American GFR(CKD) >90 (>60 ml/min/1.73 sqM); Sodium 136 mmol/L (137-145)
[2024-03-09 14:20] LABS: Basophils # (A) 0.1 k/uL (0-0.2); Basophils % (A) 0 %; Eosinophils # (A) 0.2 k/uL (0-0.7); Eosinophils % (A) 1 %; HCT 44.3 % (34.0-46.0); HGB 14.5 gm/dL (11.4-16.0); Lymphocytes # (A) 1.5 k/uL (1.0-4.8); Lymphocytes % (A) 11 %; MCH 28.2 pg (25.0-35.0); MCHC 32.6 g/dL (31.0-37.0); MCV 86.5 fL (80.0-100.0); Mean Platelet Volume 7.4; Monocytes # (A) 0.8 k/uL (0-1.0); Monocytes % (A) 6 %; Neutrophils # (A) 10.1 k/uL (1.3-7.7); Neutrophils % (A) 79 %; Platelet Count 278 k/uL (150-450); RBC 5.13 m/uL (3.80-5.40); RDW 12.6 % (11.5-15.5); WBC 12.8 k/uL (3.8-10.6)
[2024-03-09 14:33] LABS: AST 39 U/L (14-36); Albumin 3.9 g/dL (3.5-5.0); Alkaline Phosphatase 73 U/L (38-126); Potassium 4.7 mmol/L (3.5-5.1); Total Protein 6.7 g/dL (6.3-8.2)
[2024-03-09 14:35] LABS: Appearance,Urine Cloudy (Clear); Bilirubin,Urine Negative (Negative); Blood,Urine Negative (Negative); Color,Urine Light Yellow; Glucose,Urine (UA) Negative (Negative); Ketones,Urine Negative (Negative); Leukocyte Esterase,Urine Small (Negative); Mucus,Urine Rare /hpf; Nitrite,Urine Negative (Negative); Protein,Urine Negative (Negative); RBC,Urine 1 /hpf (0-5); Specific Gravity,Urine 1.014 (1.001-1.035); Squamous Epithelial Cell,Urine 8 /hpf (0-4); Urobilinogen,Urine <2.0 mg/dL (<2.0); WBC,Urine 6 /hpf (0-5)
[2024-03-09] MEDS: HYDROmorphone 0.5 MG/0.5 ML SYRINGE IVP STA (14:57)
--- NOTE | 2024-03-09 15:37 | CT ---
EXAMINATION TYPE: CT abdomen pelvis w con DATE OF EXAM: 03/09/2024 COMPARISON: [id number] hours: Shortness wall rectus HISTORY: ab pain, fever, pilinoidal cyst removal 03/04 CT DLP: 2133 mGycm CONTRAST: CT scan of the abdomen and pelvis is performed without Oral Contrast and with IV Contrast, patient in jected with 100ml mL of Isovue 300. FINDINGS: LUNG BASES-: No visible nodule. No infiltrate. LIVER/GB: No calcified gallstones. Borderline hepatic steatosis. No space occupying hepatic lesion . Biliary tree is of normal caliber. PANCREAS: No inflammation. No distinct mass. SPLEEN: No splenic enlargement. No lesion seen. ADRENALS: No nodule. No thickening. KIDNEYS/BLADDER: No hydronephrosis. No nephrolithiasis. No distinct renal mass. Urinary bladder g rossly unremarkable. BOWEL: Normal appendix. Normal bowel caliber. No inflammation. GENITAL ORGANS: No gross abnormality. LYMPH NODES: No greater than 1cm abdominal or pelvic lymph nodes are appreciated. AORTA: No significant abnormality. OSSEOUS STRUCTURES: No significant abnormality is seen. OTHER: There is soft tissue defect noted at the site of the pilonidal cyst surgery. There is strandin g noted of the surrounding soft tissues which may reflect residual infection/postoperative change. I do not see evidence for drainable collection to suggest an abscess. IMPRESSION: 1. There is soft tissue defect noted at the site of the pilonidal cyst surgery. There is stranding no haja of the surrounding soft tissues which may reflect residual infection/postoperative change. I do n ot see evidence for drainable collection to suggest an abscess.
[2024-03-09 16:27] VITALS: BP 112/82; PULSE 80; TEMP 98.6
== END 2024-03-09 16:28 | disposition home or self-care (01) ==
LOC: EC 12:53
DX: K59.00 Constipation, unspecified (principal); R10.9 Unspecified abdominal pain; L05.91 Pilonidal cyst without abscess; R11.0 Nausea; F17.290 Nicotine dependence, other tobacco product, uncomplicated; Z88.1 Allergy status to other antibiotic agents
CPT/HCPCS: 36415; 80053; 83605; 85025; 81001; 87040; 74177; 99284; 96374; 96375; 96361; J1885; J1170; Q9967

== ENCOUNTER 2024-03-10 20:04 | Emergency (ER) | payer OTHER ==
[2024-03-10 20:12] VITALS: RESP 20
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
[2024-03-11 00:28] LABS: Basophils # (A) 0.1 k/uL (0-0.2); Basophils % (A) 1 %; Eosinophils # (A) 0.1 k/uL (0-0.7); Eosinophils % (A) 1 %; HCT 45.3 % (34.0-46.0); HGB 14.4 gm/dL (11.4-16.0); Lymphocytes # (A) 1.5 k/uL (1.0-4.8); Lymphocytes % (A) 13 %; MCHC 31.8 g/dL (31.0-37.0); Mean Platelet Volume 7.1; Monocytes # (A) 0.6 k/uL (0-1.0); Monocytes % (A) 5 %; Neutrophils % (A) 79 %; Platelet Count 362 k/uL (150-450); RBC 5.15 m/uL (3.80-5.40); RDW 12.5 % (11.5-15.5); WBC 11.5 k/uL (3.8-10.6)
[2024-03-11 00:39] LABS: ALT 32 U/L (4-34); AST 25 U/L (14-36); African American GFR (CKD) >90 (>60 ml/min/1.73 sqM); Albumin 4.4 g/dL (3.5-5.0); Alkaline Phosphatase 82 U/L (38-126); Anion Gap 9 mmol/L; Blood Urea Nitrogen 10 mg/dL (7-17); Calcium 9.4 mg/dL (8.4-10.2); Carbon Dioxide 26 mmol/L (22-30); Chloride 106 mmol/L (98-107); Glucose 99 mg/dL (74-99); Non-African American GFR(CKD) >90 (>60 ml/min/1.73 sqM); Potassium 3.8 mmol/L (3.5-5.1); Sodium 141 mmol/L (137-145); Total Bilirubin 0.6 mg/dL (0.2-1.3); Total Protein 7.2 g/dL (6.3-8.2)
[2024-03-11 02:48] VITALS: BP 139/86; PULSE 79; TEMP 99.3
== END 2024-03-11 02:48 | disposition home or self-care (01) ==
LOC: EC 20:04
DX: Z48.01 Encounter for change or removal of surgical wound dressing (principal); F17.290 Nicotine dependence, other tobacco product, uncomplicated; Z88.1 Allergy status to other antibiotic agents
CPT/HCPCS: 36415; 80053; 83605; 85025; 99283